=== PATIENT | female | born 1985 | race Caucasian/White ===

== ENCOUNTER 2020-11-29 15:19 | Emergency (ER) | payer OTHER ==
[~2020-11-29] VITALS: Ht 167.6 cm; Wt 90.3 kg
[2020-11-29] MEDS ORDERED: AVALIDE 300-121 EACH PO (15:40)
== END 2020-11-29 22:18 | disposition home or self-care (01) ==
LOC: ER 15:19
DX: B34.9 Viral infection, unspecified (principal); Z20.822 Contact with and (suspected) exposure to COVID-19